=== PATIENT | female | born 1975 | race American Indian/Alaskan Native ===

== ENCOUNTER 2018-07-13 09:26 | Emergency (ER) | payer OTHER ==
[2018-07-13] MEDS ORDERED: NACL 0.9% 1000 ML 1,000 ML IV ONE ×2 (09:43→11:04)
[2018-07-13 10:36] LABS: Basophils % (Auto) 0.3 % (0.0-1.8); Eosinophils # (Auto) 0.2 K/mm3 (0.0-0.4); Eosinophils % (Auto) 1.3 % (0.0-4.3); Hematocrit 41.8 % (30.3-42.9); Hemoglobin 14.1 gm/dl (10.1-14.3); Lymphocytes # (Auto) 3.1 K/mm3 (1.2-5.4); Lymphocytes % (Auto) 19.9 % (13.4-35.0); Mean Corpuscular HGB Conc 34 % (30-34); Mean Corpuscular Volume 97 fl (79-97); Monocytes # (Auto) 0.9 K/mm3 (0.0-0.8); Monocytes % (Auto) 5.4 % (0.0-7.3); Platelet Count 347 K/mm3 (140-440); Red Blood Count 4.32 M/mm3 (3.65-5.03); Red Cell Distribution Width 15.3 % (13.2-15.2)
[2018-07-13 10:47] LABS: Bacteria,Urine 1+ /HPF (Negative); Bilirubin,Urine NEG (Negative); Blood,Urine SM (Negative); Color,Urine Yellow (Yellow); Mucus,Urine 2+ /HPF
[2018-07-13 10:49] LABS: Alanine Aminotransferase 13 units/L (7-56); Albumin 3.4 g/dL (3.9-5); BUN/Creatinine Ratio 18; Blood Urea Nitrogen 9 mg/dL (7-17); Calcium 8.4 mg/dL (8.4-10.2); Hemolysis Index 4
[2018-07-13] MEDS ORDERED: ZOFRAN IV ONE ×2 (11:06→15:35)
[2018-07-13] MEDS ORDERED: TORADOL IV ONE (11:29)
[2018-07-13] MEDS ORDERED: DILAUDID IV ONE ×2 (11:33→15:35)
[2018-07-13] MEDS ORDERED: LEVAQUIN 750MG/150ML 750 MG/150 ML BAG IV ONE (11:35)
--- NOTE | 2018-07-13 11:36 | Emergency Department Report ---
ED Abdominal Pain HPI - General Chief Complaint: Abdominal Pain Stated Complaint: RT SIDE PAIN Time Seen by Provider: 07/13/18 11:29 Source: patient Mode of arrival: Ambulatory Limitations: No Limitations - History of Present Illness Initial Comments: 42-year-old female with a past medical history asthma hypertension presents to the hospital with complaints of right sided abdominal pain 2 days. Pain Initially started under rib and now includes the whole right abdomen and flank. Pain is constant, severe, worse with palpation and movement. Patient is tearful during examination. She is unable to qualify pain. She complains of nausea and diarrhea. She denies vomiting, hematochezia, hematemesis, dysuria, fever, or previous abdominal surgeries. Severity scale (0 -10): 8 - Related Data Previous Rx's Medication Instructions Recorded Last Taken Type Ibuprofen [Motrin] 800 mg PO Q8HR PRN #30 tablet 07/13/18 Unknown Rx Ondansetron [Zofran Odt] 4 mg PO Q8HR PRN #20 tab.rapdis 07/13/18 Unknown Rx cephALEXin [Keflex] 500 mg PO Q6HR 10 Days capsule 07/13/18 Unknown Rx oxyCODONE /ACETAMINOPHEN [Percocet 1 tab PO Q6HR PRN #15 tablet 07/13/18 Unknown Rx 5/325] Allergies Allergy/AdvReac Type Severity Reaction Status Date / Time shellfish derived Allergy Hives Verified 07/13/18 09:29 ED Review of Systems ROS: Stated complaint: RT SIDE PAIN Other details as noted in HPI Comment: All other systems reviewed and negative ED Past Medical Hx - Past Medical History Previous Medical History?: Yes Hx Hypertension: Yes Hx Asthma: Yes - Surgical History Past Surgical History?: No - Social History Smoking Status: Current Every Day Smoker Substance Use Type: Alcohol - Medications Home Medications: Home Medications Medication Instructions Recorded Confirmed Last Taken Type Ibuprofen [Motrin] 800 mg PO Q8HR PRN #30 tablet 07/13/18 Unknown Rx Ondansetron [Zofran Odt] 4 mg PO Q8HR PRN #20 tab.rapdis 07/13/18 Unknown Rx cephALEXin [Keflex] 500 mg PO Q6HR 10 Days capsule 07/13/18 Unknown Rx oxyCODONE /ACETAMINOPHEN [Percocet 1 tab PO Q6HR PRN #15 tablet 07/13/18 Unknown Rx 5/325] ED Physical Exam - General Limitations: No Limitations - Other Other exam information: General: Tearful distress secondary to pain Head exam: Atraumatic, normocephalic Eyes exam: Normal appearance, pupils equal reactive to light, extraocular movements intact ENT: Moist mucous membrane, normal oropharynx Neck exam: Normal inspection, full range of motion, no meningismus nontender Respiratory exam: Clear to auscultation bilateral, no wheezes, rales, crackles Cardiovascular: Normal rate and rhythm, normal heart sounds Abdomen: Soft, nondistended, right upper quadrant greatest area of tenderness, also right lower quadrant and right flank tenderness, with normal bowel sounds, no rebound, or guarding Extremity: Full range of motion normal inspection no deformity Back: Normal Inspection, full range of motion, no tenderness Neurologic: Alert, oriented x3, cranial nerves intact, no motor or sensory deficit Skin: Warm, dry, intact ED Course Vital Signs 07/13/18 07/13/18 07/13/18 09:37 14:07 15:40 Temperature 97.8 F Pulse Rate 83 76 Respiratory 20 18 18 Rate Blood Pressure 144/70 Blood Pressure 138/72 [Left] O2 Sat by Pulse 100 98 Oximetry - Reevaluation(s) Reevaluation #1: 07/13/18 17:[address] instructed [address] to drive home due to narcotics that were given in the ED. She presents to take an over with her child 16yo. She is alert with normal men gely status. ED Medical Decision Making - Lab Data Result diagrams: 07/13/18 10:04 07/13/18 10:04 Lab Results 07/13/18 07/13/18 07/13/18 Range/Units 10:04 10:04 10:04 WBC 15.6 H (4.5-11.0) K/mm3 RBC 4.32 (3.65-5.03) M/mm3 Hgb 14.1 (10.1-14.3) gm/dl Hct 41.8 (30.3-42.9) % MCV 97 (79-97) fl MCH 33 H (28-32) pg MCHC 34 (30-34) % RDW 15.3 H (13.2-15.2) % Plt Count 347 (140-440) K/mm3 Lymph % (Auto) 19.9 (13.4-35.0) % Davie % (Auto) 5.4 (0.0-7.3) % Eos % (Auto) 1.3 (0.0-4.3) % Baso % (Auto) 0.3 (0.0-1.8) % Lymph # 3.1 (1.2-5.4) K/mm3 Davie # 0.9 H (0.0-0.8) K/mm3 Eos # 0.2 (0.0-0.4) K/mm3 Baso # 0.0 (0.0-0.1) K/mm3 Seg Neutrophils % 73.1 H (40.0-70.0) % Seg Neutrophils # 11.4 H (1.8-7.7) K/mm3 Sodium 143 (137-145) mmol/L Potassium 3.4 L (3.6-5.0) mmol/L Chloride 104.5 (98-107) mmol/L Carbon Dioxide 27 (22-30) mmol/L Anion Gap 15 mmol/L BUN 9 (7-17) mg/dL Creatinine 0.5 L (0.7-1.2) mg/dL Estimated GFR > 60 ml/min BUN/Creatinine Ratio 18 % Glucose 91 (65-100) mg/dL Calcium 8.4 (8.4-10.2) mg/dL Total Bilirubin 0.30 (0.1-1.2) mg/dL AST 12 (5-40) units/L ALT 13 (7-56) units/L Alkaline Phosphatase 78 (35-129) units/L Total Protein 6.5 (6.3-8.2) g/dL Albumin 3.4 L (3.9-5) g/dL Albumin/Globulin Ratio 1.1 % HCG, Qual Negative (Negative) Urine Color (Yellow) Urine Turbidity (Clear) Urine pH (5.0-7.0) Ur Specific [place] (1.003-1.030) Urine Protein (Negative) mg/dL Urine Glucose (UA) (Negative) mg/dL Urine Ketones (Negative) mg/dL Urine Blood (Negative) Urine Nitrite (Negative) Urine Bilirubin (Negative) Urine Urobilinogen (<2.0) mg/dL Ur Leukocyte Esterase (Negative) Urine WBC (Auto) (0.0-6.0) /HPF Urine RBC (Auto) (0.0-6.0) /HPF U Epithel Cells (Auto) (0-13.0) /HPF Urine Bacteria (Auto) (Negative) /HPF Urine Mucus /HPF 07/13/18 Range/Units 10:05 WBC (4.5-11.0) K/mm3 RBC (3.65-5.03) M/mm3 Hgb (10.1-14.3) gm/dl Hct (30.3-42.9) % MCV (79-97) fl MCH (28-32) pg MCHC (30-34) % RDW (13.2-15.2) % Plt Count (140-440) K/mm3 Lymph % (Auto) (13.4-35.0) % Davie % (Auto) (0.0-7.3) % Eos % (Auto) (0.0-4.3) % Baso % (Auto) (0.0-1.8) % Lymph # (1.2-5.4) K/mm3 Davie # (0.0-0.8) K/mm3 Eos # (0.0-0.4) K/mm3 Baso # (0.0-0.1) K/mm3 Seg Neutrophils % (40.0-70.0) % Seg Neutrophils # (1.8-7.7) K/mm3 Sodium (137-145) mmol/L Potassium (3.6-5.0) mmol/L Chloride (98-107) mmol/L Carbon Dioxide (22-30) mmol/L Anion Gap mmol/L BUN (7-17) mg/dL Creatinine (0.7-1.2) mg/dL Estimated GFR ml/min BUN/Creatinine Ratio % Glucose (65-100) mg/dL Calcium (8.4-10.2) mg/dL Total Bilirubin (0.1-1.2) mg/dL AST (5-40) units/L ALT (7-56) units/L Alkaline Phosphatase (35-129) units/L Total Protein (6.3-8.2) g/dL Albumin (3.9-5) g/dL Albumin/Globulin Ratio % HCG, Qual (Negative) Urine Color Yellow (Yellow) Urine Turbidity Slightly-cloudy (Clear) Urine pH 5.0 (5.0-7.0) Ur Specific [place] 1.025 (1.003-1.030) Urine Protein 30 mg/dl (Negative) mg/dL Urine Glucose (UA) Neg (Negative) mg/dL Urine Ketones Neg (Negative) mg/dL Urine Blood Sm (Negative) Urine Nitrite Neg (Negative) Urine Bilirubin Neg (Negative) Urine Urobilinogen 2.0 (<2.0) mg/dL Ur Leukocyte Esterase Lg (Negative) Urine WBC (Auto) 73.0 H (0.0-6.0) /HPF Urine RBC (Auto) 12.0 (0.0-6.0) /HPF U Epithel Cells (Auto) 9.0 (0-13.0) /HPF Urine Bacteria (Auto) 1+ (Negative) /HPF Urine Mucus 2+ /HPF - Radiology Data Radiology results: report reviewed PROCEDURE: CT ABDOMEN PELVIS W CON TECHNIQUE: Computerized axial tomography of the abdomen and pelvis was performed after the IV injection of iodinated nonionic contrast. HISTORY: RLQ pain COMPARISONS: None . FINDINGS: Visualized lower thorax: No significant abnormality. Liver: Normal size and attenuation. Spleen: Normal size and attenuation. Gallbladder and biliary system: Gallbladder is present. There is layering high density material in the gallbladder, which could be related to sludge or stones Pancreas: Normal. Adrenals: Normal. Kidneys: Normal. GI tract: The appendix is visualized and does not appear inflamed. No bowel obstruction or inflammation is seen . Lymph nodes and mesentery: Normal. Vasculature: Normal.. Bladder: Normal. Reproductive organs: The intrauterine device is positioned in the lower uterine segment. Peritoneum: Small amount of free fluid is seen in the pelvis. There is also a trace amount of fluid at the liver tip. Musculoskeletal structures: No significant abnormality. Other: None . IMPRESSION: No acute inflammatory process is seen. There is no evidence of appendicitis. An intrauterine device is present, positioned in the lower uterine segment. Recommend gynecologic evaluation. Possible gallbladder sludge or stones, not fully evaluated Trace amount of fluid is seen at the inferior aspect of the liver and in the pelvis EXAM: US ABDOMEN COMPLETE HISTORY: ruq pain TECHNIQUE: Malone scale imaging, duplex Doppler and color flow Doppler imaging are performed with a curvilinear transducer. COMPARISON: CT abdomen and pelvis dated 07/13/2018. FINDINGS: LIVER: The liver is normal in size and echogenicity. There is no focal hepatic mass or perihepatic ascites seen. SPLEEN: The spleen is normal in size, measuring approximately 9.1 cm x 5 cm x 4.7 cm. There are no focal splenic lesions seen. GALLBLADDER: The gallbladder is normal in size and echogenicity. There is no gallbladder wall thickening, pericholecystic fluid, or sonographic Davenport's sign appreciated. BILE DUCTS: No intrahepatic or extrahepatic biliary ductal dilatation is seen. The common bile duct measures approximately 1 mm. KIDNEYS: Both kidneys are normal in size and echogenicity. The right kidney measures approximately 11.7 cm x 5.3 cm x 5.3 cm, and the left kidney measures approximately 12.7 cm in x 4.6 cm x 5.8 There is no hydronephrosis, shadowing calculus, renal mass, or perinephric fluid collections seen. MISCELLANEOUS: The aorta and inferior vena cava are normal in size and contour. The pancreas is obscured by overlying bowel gas. The hepatic veins and portal vein are patent with appropriate directional blood flow. IMPRESSION: 1. Unremarkable abdominal ultrasound. - Medical Decision Making Patient urine positive for infection. Pain controlled after Toradol, Dilaudid, Zofran and normal saline in the ED. Imaging studies do not show any acute abnormalities. She received IV Rocephin. Will be discharged with medications for pyelonephritis and symptomatic treatment for pain and nausea. Strict instructions to return if symptoms worsen. - Differential Diagnosis biliary colic, appendicitis, rencolic, UTI, pyelonephritis, gastroenteritis Critical Care Time: No Critical care attestation.: If time is entered above; I have spent that time in minutes in the direct care of this critically ill patient, excluding procedure time. ED Disposition Clinical Impression: UTI (urinary tract infection), Right flank pain Disposition: DC-01 TO HOME OR SELFCARE Is pt being admited?: No Does the pt Need Aspirin: No Condition: Stable Instructions: Urinary Tract Infection in Women (ED), Flank Pain (ED) Additional Instructions: Take the medication as prescribed. Follow up with your doctor or the clinic/doctor provided. Return if symptoms worsen as indicated by your discharge instructions Prescriptions: cephALEXin [Keflex] 500 mg PO Q6HR 10 Days capsule Ibuprofen [Motrin] 800 mg PO Q8HR PRN #30 tablet PRN Reason: Pain, Moderate (4-6) oxyCODONE /ACETAMINOPHEN [Percocet 5/325] 1 tab PO Q6HR PRN #15 tablet PRN Reason: Pain , Severe (7-10) Ondansetron [Zofran Odt] 4 mg PO Q8HR PRN #20 tab.rapdis PRN Reason: Nausea And Vomiting Referrals: [facility] MD JUSTYN [Referring] - 3-5 Days GINO BARRETT MD [Staff Physician] - 3-5 Days Time of Disposition: 17:43
--- NOTE | 2018-07-13 13:36 | Cat Scan Report ---
PROCEDURE: CT ABDOMEN PELVIS W CON TECHNIQUE: Computerized axial tomography of the abdomen and pelvis was performed after the IV inject ion of iodinated nonionic contrast. HISTORY: RLQ pain COMPARISONS: None . FINDINGS: Visualized lower thorax: No significant abnormality. Liver: Normal size and attenuation. Spleen: Normal size and attenuation. Gallbladder and biliary system: Gallbladder is present. There is layering high density material in th e gallbladder, which could be related to sludge or stones Pancreas: Normal. Adrenals: Normal. Kidneys: Normal. GI tract: The appendix is visualized and does not appear inflamed. No bowel obstruction or inflammat ion is seen . Lymph nodes and mesentery: Normal. Vasculature: Normal.. Bladder: Normal. Reproductive organs: The intrauterine device is positioned in the lower uterine segment. Peritoneum: Small amount of free fluid is seen in the pelvis. There is also a trace amount of fluid a t the liver tip. Musculoskeletal structures: No significant abnormality. Other: None . IMPRESSION: No acute inflammatory process is seen. There is no evidence of appendicitis. An intrauterine device is present, positioned in the lower uterine segment. Recommend gynecologic karlo luation. Possible gallbladder sludge or stones, not fully evaluated Trace amount of fluid is seen at the inferior aspect of the liver and in the pelvis This document is electronically signed by Jessica Verma MD., July 13 2018 01:34:30 PM ET
--- NOTE | 2018-07-13 16:53 | Ultrasound Report ---
EXAM: US ABDOMEN COMPLETE HISTORY: ruq pain TECHNIQUE: Malone scale imaging, duplex Doppler and color flow Doppler imaging are performed with a cu rvilinear transducer. COMPARISON: CT abdomen and pelvis dated 07/13/2018. FINDINGS: LIVER: The liver is normal in size and echogenicity. There is no focal hepatic mass or perihepatic a scites seen. SPLEEN: The spleen is normal in size, measuring approximately 9.1 cm x 5 cm x 4.7 cm. There are no focal splenic lesions seen. GALLBLADDER: The gallbladder is normal in size and echogenicity. There is no gallbladder wall thicke cj, pericholecystic fluid, or sonographic Davenport's sign appreciated. BILE DUCTS: No intrahepatic or extrahepatic biliary ductal dilatation is seen. The common bile duct m easures approximately 1 mm. KIDNEYS: Both kidneys are normal in size and echogenicity. The right kidney measures approximately 1 1.7 cm x 5.3 cm x 5.3 cm, and the left kidney measures approximately 12.7 cm in x 4.6 cm x 5.8 There is no hydronephrosis, shadowing calculus, renal mass, or perinephric fluid collections seen. MISCELLANEOUS: The aorta and inferior vena cava are normal in size and contour. The pancreas is obscu red by overlying bowel gas. The hepatic veins and portal vein are patent with appropriate directional blood flow. IMPRESSION: 1. Unremarkable abdominal ultrasound. This document is electronically signed by Abiel Acuna MD., July 13 2018 04:51:04 PM ET
[2018-07-13] MEDS ORDERED: K-DUR PO ONE (17:33)
[2018-07-13 18:37] VITALS: BP 134/74
== END 2018-07-13 18:37 | disposition home or self-care (01) ==
LOC: ED 09:26
DX: N39.0 Urinary tract infection, site not specified (principal); I10 Essential (primary) hypertension; J45.909 Unspecified asthma, uncomplicated; F17.200 Nicotine dependence, unspecified, uncomplicated; Z91.013 Allergy to seafood
CPT/HCPCS: 36415; 74177; 76700; 80053; 81001; 84703; 85025; 96365; 96366; 96375; 96376; 99284; J1170; J1885; J1956; J2405; J7030; Q9967